=== PATIENT | male | born 1980 | race Caucasian/White ===

== ENCOUNTER → 2020-02-24 | Outpatient (CLI) | payer OTHER ==
--- NOTE | 2020-02-24 12:02 | MRI ---
EXAM DESCRIPTION: MRI left wrist CLINICAL HISTORY: Radial styloid fracture. Wrist pain COMPARISON: None. TECHNIQUE: Multiplanar, multisequence MR images of the left wrist FINDINGS: Horizontal fracture across the base of the radial styloid with intra-articular extension at the proximal scaphoid fossa. Mild comminution with coronal oriented fracture across the dorsal lunate fossa. Greatest degree of separation at the scaphoid fossa about 4 mm and across the lunate fossa about 2 mm. Avulsion of the base of the triangular fibrocartilage from the ulnar styloid with laxity of the torn and retracted TFC proper. Edema within and around the ulnar capsule/collateral ligament and meniscus homologue. Distal radial ulnar joint effusion. Dorsal subluxation of the ulna relative to the sigmoid notch of the radius. Edema within and around the volar radial ulnar joint capsule/ligament. Focal osseous edema in the dorsal ulnar metaphysis consistent with contusion Signal within the volar band of the scapholunate ligament suspicious for full-thickness incomplete scapholunate ligament tear. Lunotriquetral ligament intact. No pre-existing advanced arthrosis or chronic osteochondral lesion of the wrist. Focus of cystic change in the distal trapezium, a small degenerative resorptive cyst. Small marginal osteophyte of the metacarpal of the thumb. No advanced arthrosis carpometacarpal. Moderate tendon sheath effusions extensor carpi radialis and extensor pollicis longus. No intrinsic tendon signal abnormality. Flexor tendons are normal IMPRESSION: Fracture of the distal radial epiphysis, primarily fracture plane transversely oriented across the radial styloid with intra-articular extension into the scaphoid fossa. Comminution and contiguous coronal extension across the lunate fossa Avulsion of the TFC from the ulnar styloid. Radial ulnar ligament/capsule and ulnar collateral ligament injury with distal radial ulnar joint instability. Dorsal subluxation of the ulna relative to the radius. Small contusion of the distal ulna Suspicion of a full-thickness incomplete tear of the scapholunate ligament involving the volar band Electronically signed by: Rambo Hudson MD 02/24/2020 12:00 PM CDT
== END ==
LOC: MRI 07:14
PROVIDERS: ATTEND Orthopaedic Surgery
DX: S52.512A Displaced fracture of left radial styloid process, initial encounter for closed fracture (principal); S63.072A Subluxation of distal end of left ulna, initial encounter; S63.592A Other specified sprain of left wrist, initial encounter; M24.232 Disorder of ligament, left wrist; M25.332 Other instability, left wrist